=== PATIENT | female | born 1990 | race Caucasian/White ===

== ENCOUNTER 2018-02-05 16:59 | Emergency (ER) | payer MEDICAID ==
[~2018-02-05] VITALS: Ht 157.5 cm; Wt 76.4 kg
[2018-02-05] MEDS ORDERED: IBUPROFEN 800 MG TABLET PO ONE (19:15)
[2018-02-05 20:30] VITALS: BP 128/84
== END 2018-02-05 20:55 | disposition home or self-care (01) ==
LOC: EMS 17:01
DX: S80.01XA Contusion of right knee, initial encounter (principal); Z88.0 Allergy status to penicillin; W01.0XXA Fall on same level from slipping, tripping and stumbling without subsequent striking against object, initial encounter; Y93.01 Activity, walking, marching and hiking; Y92.89 Other specified places as the place of occurrence of the external cause; Y99.8 Other external cause status
CPT/HCPCS: 29530; 99284